=== PATIENT | male | born 1980 | race Caucasian/White ===

== ENCOUNTER 2016-10-08 07:27 | Emergency (ER) | payer BC ==
[2016-10-08 07:28] VITALS: BP 140/82
[2016-10-08 07:43] LABS: Urine Bilirubin Negative (NEGATIVE); Urine Blood Negative /ul (NEGATIVE); Urine Ketone Negative (NEGATIVE); Urine Nitrite Negative (NEGATIVE); Urine Protein Negative (NEGATIVE); Urine Specific Gravity 1.025 SP.GR. (1.005-1.030); Urine Urobilinogen Normal (NORMAL)
[2016-10-08 08:06] LABS: Urine Appearance Clear; Urine Bacteria TRACE; Urine Color Yellow; Urine Mucus TRACE; Urine RBC 0-5 /hpf (0-5); Urine WBC 0-5 /hpf (0-5)
--- OUTSIDE RECORDS SUMMARY | 2016-10-08 08:41 | XMS REPORT | Continuity of Care Document ---
:1980 Author Organization [facility] ([facility]) Address [address] [place] [address] Phone [phone] Care Team Providers Name Role Phone Ryann Chatterjee Primary Care Provider [phone] Source Comments This disclosure is being made pursuant to the Care Everywhere program, applicable federal and state laws, and may not contain all informaitonavailable regarding this patient.[facility] ([facility]) Active Allergies and Adverse Reactions No Known Allergies Current Medications Prescription Sig. Disp. Refills Start Date End Date Status carvedilol 25 mg Take 25 mg by mouth Active tablet 2 times daily with meals. atorvastatin 10 mg Take 1 tablet (10 mg 30 tablet 0 10/04/2015 Active tablet total) by mouth daily. fenofibrate 200 mg Take 1 capsule (200 30 capsule 0 10/04/2015 Active capsule mg total) by mouth daily. lisinopril 10 mg Take 1 tablet (10 mg 30 tablet 0 10/04/2015 Active tablet total) by mouth daily. SUPPLY BD Inject 100 Each 1 10/04/2015 Active ULTRA-FINE REHAN 32 subcutaneously 4 x 4 MM pen needle times daily. insulin glargine Inject 55 Units 20 mL 0 10/04/2015 Active (LanTUS SOLOSTAR) subcutaneously 100 unit/mL (3 mL) daily. injection pen insulin aspart Please inject 11 20 mL 0 10/05/2015 Active (NovoLOG) 100 units SQ PLUS unit/mL injection sliding scale with vial meals TID.. Active Problems Problem Noted Date Morbid obesity 09/28/2015 Obesity, morbid, BMI 40.0-49.9 09/28/2015 Pancreatitis 09/27/2015 Hypertriglyceridemia 09/27/2015 Type 2 diabetes mellitus with complication 09/27/2015 Resolved Problems Problem Noted Date Resolved Date Hyposmolality and/or hyponatremia 09/28/2015 10/04/2015 DKA (diabetic ketoacidoses) 09/27/2015 09/27/2015 Social History Tobacco Use Types Packs/Day Years Used Date Never Assessed Last Filed Vital Signs Vital Sign Reading Time Taken Blood Pressure 115/69 10/04/2015 10:39 AM GROUP EXERCISE INSTRUCTOR Pulse 76 10/04/2015 8:00 AM GROUP EXERCISE INSTRUCTOR Temperature 37.3 C (99.1 F) 10/04/2015 8:00 AM GROUP EXERCISE INSTRUCTOR Respiratory Rate 26 10/04/2015 8:00 AM GROUP EXERCISE INSTRUCTOR Height 1.829 m (6' 0.01") 09/30/2015 12:40 PM GROUP EXERCISE INSTRUCTOR Weight 136.986 kg (302 lb) 09/30/2015 12:40 PM GROUP EXERCISE INSTRUCTOR Body Mass Index 40.95 09/30/2015 12:40 PM GROUP EXERCISE INSTRUCTOR Oxygen Saturation 95% 10/04/2015 8:00 AM GROUP EXERCISE INSTRUCTOR Plan of Care Health Maintenance Due Date Last Done Comments Hepatitis B Vaccine (1 of 3 - 1980 Primary Series) Tdap Vaccine 10/18/1990 DIABETIC: Microalbumin 10/18/1997 MMR Vaccine 10/18/1997 Td Vaccine 10/18/1997 Varicella Vaccine (1 of 2 - 10/18/1997 Adult - No Evidence of Immunity) Pneumococcal Vaccine (1 of 1 10/18/1998 - PPSV23) DIABETIC: Foot Exam 09/27/2015 DIABETIC: Retinal Eye Exam 09/27/2015 Influenza Vaccine: Seasonal 03/18/2016 (#1) DIABETIC: Hemoglobin A1C 03/28/2016 09/28/2015 DIABETIC: Cholesterol 10/02/2016 10/02/2015 Diabetic: Hdl 10/02/2016 10/02/2015 Diabetic: Ldl 10/02/2016 10/02/2015 DIABETIC: Triglycerides 10/04/2016 10/04/2015, Additional history exists 10/02/2015, 10/02/2015 Results from Last 3 Months Not on file
--- NOTE | 2016-10-08 08:44 | ERNOTE ---
Back Pain ER HPI Presenting Symptoms: other Time Seen by Provider: 10/08/16 08:20 Source: patient Exam Limitations: no limitations Immunizations: IMMUNIZATION HX Immunizations Up to Date Yes History of Influenza Vaccine No Hx Pneumococcal Vaccination No Allergies/Adverse Reactions: Allergies No Known Allergies Allergy (Verified 10/08/16 07:35) Home Medications: HOME MEDICATIONS Fenofibrate,Micronized [Lofibra] 200 mg PO DAILY 10/17/15 [Last Taken Unknown] Insulin Aspart [Novolog] 11 units SC AC 10/17/15 [Last Taken Unknown] Insulin Glargine,Hum.rec.anlog [Lantus] 55 units SC DAILY 10/17/15 [Last Taken Unknown] Lisinopril [Zestril] 10 mg PO DAILY 10/17/15 [Last Taken Unknown] Atorvastatin Calcium [Lipitor] 10 mg PO DAILY 11/17/15 [Last Taken Unknown] Hydrocodone/Acetaminophen [Wilsons 5-325 Tablet] 1 - 2 tab PO Q6H PRN #30 tab [Last Taken Unknown] Lansoprazole [Prevacid] 30 mg PO DAILY 10/08/16 [Last Taken Unknown] Tamsulosin HCl [Flomax] 0.4 mg PO DAILY #7 capsule 10/08/16 [Last Taken Unknown] Narrative: Patient started with left flank pain a couple of days ago. He is not aware of any injuries but has had similar pain with kidney stones before. He has needed intervention for about 8 stones and has passed about three times as many. He usually does not have blood in his urine with them and sees Dr Saenz Date (Duration): 10/06/16 Time (Timing): 22:00 Review of Systems - Review of Systems Constitutional: Absent: recent illness, fever, chills ENT: Absent: nose congestion, sore throat Respiratory: Absent: shortness of breath, cough Cardiology: Absent: chest pain Gastrointestinal/Abdominal: Present: nausea, abdominal pain - chronic on and off since pancreatitis. Absent: vomiting, diarrhea Genitourinary: Present: See HPI. Absent: frequency, dysuria Musculoskeletal: Present: See HPI Neurological: Absent: headache, weakness, numbness - Patient's Past Medical History Patient History - Medical: Anxiety, Diabetes Type 2, Kidney stone, Obesity, Other - pancreatitis, sarcoidosis Patient History - Cardiac/Respiratory: Hypertension, Hyperlipidemia Patient History - Cancer: No Hx of Cancer Patient History - Surgical Procedures: Other Patient History - Other: None - Social History Living Situations: home Abuse History: No History of abuse Psych History: No pertinent hx Smoking Status: Never smoker Alcohol Use: none Drug Use: none - Immunizations Immunizations Up to Date: Yes Hx Pneumococcal Vaccination: No History of Influenza Vaccine: No Physical Exam - Physical Exam General Appearance: Present: wd/wn, alert, no apparent distress, obese Respiratory: Present: no respiratory distress, normal breath sounds, no accessory muscle use, lungs clear Cardiovascular/Chest: Present: regular rate, rhythm, no murmur Back Exam: Present: normal inspection, no CVA tenderness, no vertebral tenderness Neurological Exam: Present: alert, oriented, normal mood/affect Skin Exam: Present: normal color, warm/dry ED Progress - Results and Orders Patient's Lab Results:: I have reviewed the patient's lab results. - Vital Signs Patient's Vital Signs:: I have reviewed the patient's vital signs. Vital Signs: Vital Signs 10/08/16 07:31 Temperature 36.1 C L Pulse Rate 95 Respiratory 14 Rate Blood Pressure 140/82 O2 Sat by Pulse 97 Oximetry - Progress/Reassessment Chief Complaint: Back Pain Progress Note-Subjective: 10/08/16 08:36 discussed possible stone, offered CT as patient has had symptoms for two days patient would like to wait, try flomax and pain meds first. He will call Dr Saenz for follow up if symptoms don't resolve Departure Clinical Impression: Ureteral colic - Departure Disposition: Home self-care Condition: Good Instructions: Renal Colic, [id number], Form - Excuse from Work, School, or Physical Activity Additional Instructions: take the pain and nausea medication if you are not better in a couple of days follow up with Dr Saenz Referrals: Dany Massey MD [Associate] - Prescriptions: Hydrocodone/Acetaminophen [Wilsons 5-325 Tablet] 1 - 2 tab PO Q6H PRN #30 tab PRN Reason: Pain Tamsulosin HCl [Flomax] 0.4 mg PO DAILY #7 capsule
== END 2016-10-08 08:41 | disposition home or self-care (01) ==
LOC: ER 07:27
DX: N23 Unspecified renal colic (principal); Z87.442 Personal history of urinary calculi; E11.9 Type 2 diabetes mellitus without complications; Z79.4 Long term (current) use of insulin; I10 Essential (primary) hypertension; E78.5 Hyperlipidemia, unspecified

== ENCOUNTER 2017-03-21 19:18 | Emergency (ER) | payer BC ==
[2017-03-21] MEDS ORDERED: KETOROLAC TROMETHAMINE 60 MG/2 ML VIAL IM ONE ×2 (19:39→19:40)
--- NOTE | 2017-03-21 19:40 | ERNOTE ---
<Mary Gillespie - Last Filed: 03/21/17 19:36> ER Male HPI Stated Complaint: KIDNEY STONES Time Seen by Provider: 03/21/17 19:22 Source: patient Exam Limitations: no limitations Immunizations: IMMUNIZATION HX Immunizations Up to Date Yes History of Influenza Vaccine No Hx Pneumococcal Vaccination No Allergies/Adverse Reactions: Allergies No Known Allergies Allergy (Verified 03/21/17 19:25) Home Medications: HOME MEDICATIONS Fenofibrate,Micronized [Lofibra] 200 mg PO DAILY 10/17/15 [Last Taken Unknown] Insulin Aspart [Novolog] 11 units SC AC 10/17/15 [Last Taken Unknown] Insulin Glargine,Hum.rec.anlog [Lantus] 55 units SC DAILY 10/17/15 [Last Taken Unknown] Lisinopril [Zestril] 10 mg PO DAILY 10/17/15 [Last Taken Unknown] Atorvastatin Calcium [Lipitor] 10 mg PO DAILY 11/17/15 [Last Taken Unknown] Lansoprazole [Prevacid] 30 mg PO DAILY 10/08/16 [Last Taken Unknown] Amox Tr/Potassium Clavulanate [Augmentin 875-125 Tablet] 875 mg PO Q12H #14 tab 03/21/17 [Last Taken Unknown] Naproxen [Naprosyn] 500 mg PO BID PRN #20 tablet 03/21/17 [Last Taken Unknown] Tramadol HCl [Rybix Odt] 50 mg PO QID 03/21/17 [Last Taken Unknown] Tramadol HCl [Rybix Odt] 50 mg PO QID PRN #20 tab.rapdis 03/21/17 [Last Taken Unknown] - History of Present Illness Narrative: Patient has had a history of severe left-sided flank pain. Patient has already seen a urologist and has been diagnosed with nephrolithiasis. Patient states that he has already passed 3 stones. He is here for severe left-sided flank pain and tramadol is not helping him at this time. Denies any fevers or chills he denies any dysuria he has had tinged urine. Pain right now is 7 or 8 out of 10. Review of Systems - Review of Systems Constitutional: Present: no symptoms reported Respiratory: Present: no symptoms reported Cardiology: Present: no symptoms reported Genitourinary: Present: See HPI - Patient's Past Medical History Patient History - Medical: Anxiety, Diabetes Type 2, Kidney stone, Obesity, Other Patient History - Cardiac/Respiratory: Hypertension, Hyperlipidemia Patient History - Cancer: No Hx of Cancer Patient History - Surgical Procedures: Other Patient History - Other: None - Social History Living Situations: home Abuse History: No History of abuse Psych History: No pertinent hx Alcohol Use: none Drug Use: none - Immunizations Immunizations Up to Date: Yes Hx Pneumococcal Vaccination: No History of Influenza Vaccine: No Physical Exam - Physical Exam General Appearance: Present: wd/wn, alert Respiratory: Present: no respiratory distress, normal breath sounds, no accessory muscle use, chest nontender, lungs clear Cardiovascular/Chest: Present: regular rate, rhythm, no murmur, normal peripheral pulses Back Exam: Present: normal inspection, other - patient does have left-sided flank pain on percussion. He states the pain radiates to his left testicle. ED Progress - Vital Signs Patient's Vital Signs:: I have reviewed the patient's vital signs. Vital Signs: Vital Signs 03/21/17 19:22 Temperature 36.9 C Pulse Rate 100 Respiratory 18 Rate Blood Pressure 136/81 O2 Sat by Pulse 97 Oximetry - Progress/Reassessment Chief Complaint: Genitourinary Problem - Transfer of Care Physician Sign Out: Mary Gillespie Receiving Physician: Varun Drake Pending Results: CT/MRI results, Labs, Pain-control Expected Disposition: Discharge Plan - Plan Plan: This patient comes in with classic symptoms of nephrolithiasis with history of nephrolithiasis. His pain as 7 or 8 out of 10 at this time this examiner will treat him with Toradol 60 mg IM in this case will be signed out to the oncoming provider. Departure Clinical Impression: Nephrolithiasis, Pneumonia - Departure Disposition: Home self-care Condition: Good Instructions: Renal Colic, [id number] Print Language: Ugandan Additional Instructions: If the pain is not controlled by the medications return to the ED. Contact Dr. Gil on Friday. Referrals: Wili Gil MD [Associate] - Ryann Chatterjee DO [Primary Care Provider] - Prescriptions: Amox Tr/Potassium Clavulanate [Augmentin 875-125 Tablet] 875 mg PO Q12H #14 tab Naproxen [Naprosyn] 500 mg PO BID PRN #20 tablet PRN Reason: Pain Tramadol HCl [Rybix Odt] 50 mg PO QID PRN #20 tab.rapdis PRN Reason: Pain <Varun Drake - Last Filed: 03/22/17 07:35> ER Male HPI Immunizations: IMMUNIZATION HX Immunizations Up to Date Yes History of Influenza Vaccine No Hx Pneumococcal Vaccination No
[2017-03-21 19:44] LABS: Hematocrit 40.2 % (42.0-52.0); Hemoglobin 14.2 gm/dL (13.5-18.0); Mean Corpuscular Hemoglobin 28.6 pg (27-31); Mean Corpuscular Hgb Conc 35.3 g/dl (32-36); Mean Platelet Volume 9.6 fl (6.0-9.5); Neutrophil # 3.1 K/mm3 (1.3-6.0); Neutrophil % 58.2 % (42-75.0); Platelet Count 225 K/mm3 (150-450); Red Blood Count 4.96 M/mm3 (4.7-6.0); Red Cell Distribution Width 12.7 % (11.5-14.0); White Blood Count 5.3 K/mm3 (4.0-10.5)
[2017-03-21 19:52] LABS: Urine Appearance Clear; Urine Bilirubin Negative (NEGATIVE); Urine Blood Negative /ul (NEGATIVE); Urine Color Yellow; Urine Ketone Negative (NEGATIVE); Urine Nitrite Negative (NEGATIVE); Urine Protein Negative (NEGATIVE); Urine Urobilinogen Normal (NORMAL); Urine pH 5.5 pH (5.0-7.0)
[2017-03-21 19:53] LABS: Urine Bacteria None Seen; Urine RBC None Seen /hpf (0-5); Urine WBC 0-5 /hpf (0-5)
[2017-03-21 19:57] LABS: Anion Gap 17.2 mmol/L (6.8-13.8); BUN/Creatinine Ratio 15.8 (9.0-21.6); Bilirubin, Total 0.6 mg/dL (0.0-1.1); Ca. Corrected For Albumin 9.1 mg/dL (8.4-10.2); Calcium * 9.4 mg/dL (7.9-10.9); Carbon Dioxide 22.9 mmol/L (24-32.6); Potassium 4.1 mmol/L (3.4-4.6); Total Protein 8.3 gm/dL (6.2-8.2)
[2017-03-21] MEDS ORDERED: AMOX TR/POTASSIUM CLAVULANATE 875 MG TABLET PO ONE (20:45)
[2017-03-21] MEDS ORDERED: AMOX TR/POTASSIUM CLAVULANATE 875 MG TABLET ONE (20:46)
[2017-03-21 20:57] VITALS: BP 142/90
== END 2017-03-21 20:55 | disposition home or self-care (01) ==
LOC: ER 19:18
DX: N20.0 Calculus of kidney (principal); Z87.442 Personal history of urinary calculi; E11.9 Type 2 diabetes mellitus without complications; I10 Essential (primary) hypertension

== ENCOUNTER 2017-07-25 17:02 | Emergency (ER) | payer BC ==
[2017-07-25 17:44] LABS: Urine Bilirubin Negative (NEGATIVE); Urine Blood 25 /ul (NEGATIVE); Urine Ketone Negative (NEGATIVE); Urine Nitrite Negative (NEGATIVE); Urine Protein Negative (NEGATIVE); Urine Specific Gravity 1.025 SP.GR. (1.005-1.030); Urine Urobilinogen Normal (NORMAL)
[2017-07-25 17:55] LABS: Urine Appearance Clear; Urine Bacteria None Seen; Urine Color Orange; Urine RBC TRACE /hpf (0-5); Urine WBC None Seen /hpf (0-5)
--- NOTE | 2017-07-25 19:33 | ERNOTE ---
Back Pain ER HPI Date of Service: 07/25/17 Presenting Symptoms: other - flank pain Time Seen by Provider: 07/25/17 18:04 Source: patient Exam Limitations: no limitations Immunizations: IMMUNIZATION HX Immunizations Up to Date Yes History of Influenza Vaccine No Hx Pneumococcal Vaccination No Allergies/Adverse Reactions: Allergies No Known Allergies Allergy (Verified 03/21/17 19:25) Home Medications: HOME MEDICATIONS Fenofibrate,Micronized [Lofibra] 200 mg PO DAILY 10/17/15 [Last Taken Unknown] Insulin Aspart [Novolog] 11 units SC AC 10/17/15 [Last Taken Unknown] Insulin Glargine,Hum.rec.anlog [Lantus] 55 units SC DAILY 10/17/15 [Last Taken Unknown] Lisinopril [Zestril] 10 mg PO DAILY 10/17/15 [Last Taken Unknown] Atorvastatin Calcium [Lipitor] 10 mg PO DAILY 11/17/15 [Last Taken Unknown] Lansoprazole [Prevacid] 30 mg PO DAILY 10/08/16 [Last Taken Unknown] HYDROcodone/ACETAMINOPHEN [Irving 5-325] 1 each PO Q8H PRN #12 tablet 07/25/17 [ Last Taken Unknown] Tamsulosin HCl [Flomax] 0.4 mg PO DAILY 07/25/17 [Last Taken Unknown] Narrative: "kidney stone". Patient presents to the ED with complaint of "kidney stone". He has chronic kidney stones. He states he had pain left flank radiating to left abdomen Friday and friday, felt better Friday, then Friday and had increased pain. This feels exactly like his prior kidney stone pains, nothing different about it. No fever, no dysuria, no vomiting. Pain moderate right now. nothing makes it better or worse. Timing: Reports: other - fluctuating intensity Quality/Severity: Reports: moderate Location of pain: Reports: other - left flank radiating to left low abdomen Activities at Onset: Reports: none Recent Injury?: Reports: no Modifying Factors - (Improves): Reports: nothing Modifying Factors - (Worsens): Reports: nothing Associated Symptoms: Denies: fever/chills, constipation/incontinence, nausea/ vomiting, numbess/weakness in legs Prior Treament: Denies: recently seen Review of Systems - Review of Systems Constitutional: Absent: fever ENT: Absent: sore throat Respiratory: Absent: shortness of breath Cardiology: Absent: chest pain Gastrointestinal/Abdominal: Present: See HPI Genitourinary: Absent: dysuria Musculoskeletal: Present: See HPI Skin: Absent: rash Neurological: Absent: weakness - Patient's Past Medical History Patient History - Medical: Anxiety, Diabetes Type 2, Kidney stone, Obesity, Other Patient History - Cardiac/Respiratory: Hypertension, Hyperlipidemia Patient History - Cancer: No Hx of Cancer Patient History - Surgical Procedures: Other, Urology Patient History - Other: None - Social History Living Situations: home Abuse History: No History of abuse Psych History: No pertinent hx Smoking Status: Never smoker Have you smoked in the past 12 months: No Do you dip or chew tobacco: No Alcohol Use: none Drug Use: none - Immunizations Immunizations Up to Date: Yes Hx Pneumococcal Vaccination: No History of Influenza Vaccine: No Physical Exam - Physical Exam General Appearance: Present: alert, no apparent distress Head Exam: Present: normal inspection, no evidence of injury Eye Exam: Normal inspection: bilateral, PERRL: bilateral Ears, Nose, Throat: Present: normal ENT inspection Neck: Present: normal inspection Respiratory: Present: no respiratory distress, normal breath sounds, no accessory muscle use, lungs clear Cardiovascular/Chest: Present: regular rate, rhythm Gastrointestinal/Abdominal: Present: normal bowel sounds, nontender, nondistended, soft. Absent: tenderness Male Genitals Exam: Present: normal genitalia, no hernia, other - no testicular tenderness. No suggestion of torsion Back Exam: Present: CVA tenderness (L). Absent: vertebral tenderness Extremity Exam: Present: normal inspection Neurological Exam: Present: alert, normal mood/affect, no motor/sensory deficits Skin Exam: Present: normal color, warm/dry ED Progress - Results and Orders Patient's Lab Results:: I have reviewed the patient's lab results. - Vital Signs Patient's Vital Signs:: I have reviewed the patient's vital signs. Vital Signs: Vital Signs 07/25/17 07/25/17 17:27 17:32 Temperature 36.0 C L 36.0 C L Pulse Rate 108 H 108 H Respiratory 20 20 Rate Blood Pressure 148/85 148/85 O2 Sat by Pulse 98 98 Oximetry - CT/Ultrasound CT/Ultrasound Narrative: I reviewed the official radiology report - Progress/Reassessment Chief Complaint: Back Pain Progress Note-Subjective: 07/25/17 19:29 No clear obstructing kidney stone on CT. He has urologist to follow-up with. No suggestion of other intra-abdominal pathology. No suggestion of testicular etiology. Possible recent passed stone as he is feeling better. He wishes to go home. i think that is reasonable with close Urology f/u friday. I diuscssed warning signs and reasons to return as well as the need for close f/u. Departure Clinical Impression: Flank pain - Departure Disposition: Home self-care Condition: Stable Instructions: Flank Pain, [id number] Additional Instructions: Rest. Fluids. Follow-up Friday with your Urologist for a re-check. Return here for fever, increased pain, vomiting or if your condition worsens or changes in any way. No driving with pain medications. Referrals: Ryann Chatterjee DO [Primary Care Provider] - Prescriptions: HYDROcodone/ACETAMINOPHEN [Irving 5-325] 1 each PO Q8H PRN #12 tablet PRN Reason: Pain
[2017-07-25 21:20] VITALS: BP 144/78
== END 2017-07-25 19:40 | disposition home or self-care (01) ==
LOC: ER 17:02
DX: E11.9 Type 2 diabetes mellitus without complications; E78.5 Hyperlipidemia, unspecified; R10.9 Unspecified abdominal pain; Z87.442 Personal history of urinary calculi; Z79.4 Long term (current) use of insulin; I10 Essential (primary) hypertension